=== PATIENT | male | born 1965 | race Hispanic/Latino ===

== ENCOUNTER → 2019-05-14 | Outpatient (CLI) | payer OTHER ==
[~2019-05-14] MED LIST: OMEP40CA13 PO
[2019-05-14 09:24] LABS: BASOPHILS % (AUTO) 0.7 % (0.0-5.0); EOSINOPHILS % (AUTO) 3.1 % (0.0-8.0); HEMATOCRIT 48.8 % (42-54); LYMPHOCYTES % (AUTO) 30.9 % (21.0-51.0); MEAN CORPUSCULAR HGB CONC 33.5 g/dL (32.0-36.0); MEAN CORPUSCULAR VOLUME 92.5 fL (79-99); NEUTROPHILS % (AUTO) 55.3 % (40.0-77.0); NUCLEATED RED BLOOD CELLS 0.1 % (0.0-0.19); PLATELET COUNT (AUTO) 215 K/uL (130-400); RED BLOOD CELL COUNT(AUTO) 5.28 MIL/uL (4.50-6.20); RED CELL DISTRIBUTION WIDTH 14.1 % (11.0-15.5); WHITE BLOOD COUNT (AUTO) 5.2 K/uL (4.8-10.8)
[2019-05-14 09:40] LABS: ALBUMIN 3.9 g/dL (3.5-5.0); CREATININE 0.9 mg/dL (0.5-1.5); POTASSIUM 3.8 mmol/L (3.5-5.1); TOTAL PROTEIN, SERUM 7.6 g/dL (6.0-8.3)
== END | disposition home or self-care (01) ==
LOC: LAB 08:39
PROVIDERS: ATTEND Nurse Practitioner Family
DX: M13.0 Polyarthritis, unspecified (principal); M25.50 Pain in unspecified joint
CPT/HCPCS: 36415; 73130; 73562; 80053; 83520; 85025; 86038; 86215; 86235; 86431

== ENCOUNTER → 2019-06-07 | Outpatient (CLI) | payer OTHER ==
[2019-06-07 10:40] LABS: BASOPHILS % (AUTO) 0.6 % (0.0-5.0); EOSINOPHILS % (AUTO) 2.4 % (0.0-8.0); HEMATOCRIT 48.8 % (42-54); MEAN CORPUSCULAR HEMOGLOBIN 29.3 pg (27.0-33.0); MEAN CORPUSCULAR HGB CONC 31.4 g/dL (32.0-36.0); MEAN CORPUSCULAR VOLUME 93.5 fL (79-99); MONOCYTES % (AUTO) 6.6 % (3.0-13.0); NEUTROPHILS % (AUTO) 62.2 % (40.0-77.0); PLATELET COUNT (AUTO) 247 K/uL (130-400); RED BLOOD CELL COUNT(AUTO) 5.22 MIL/uL (4.50-6.20); RED CELL DISTRIBUTION WIDTH 13.7 % (11.0-15.5); WHITE BLOOD COUNT (AUTO) 5.3 K/uL (4.8-10.8)
[2019-06-07 10:43] LABS: APPEARANCE,URINE Clear (CLEAR); BILIRUBIN,URINE Negative (NEGATIVE); COLOR,URINE Yellow (YELLOW); GLUCOSE, URINE (UA) TRACE mg/dL (NEGATIVE); KETONES,URINE Negative (NEGATIVE); LEUKOCYTE ESTERASE ,URINE Negative (NEGATIVE); NITRATE,URINE Negative (NEGATIVE); OCCULT BLOOD,URINE Small (NEGATIVE); PROTEIN,URINE Negative (NEGATIVE); UROBILINOGEN,URINE 0.2 mg/dL (0.2-1.0)
[2019-06-07 10:55] LABS: BACTERIA,URINE Rare /HPF (None Seen); RBC,URINE 0-1 /HPF (0-1); SQUAMOUS EPITHELIAL CELL,UR Rare /HPF (0-2); WBC,URINE 0-1 /HPF (0-1)
[2019-06-07 11:08] LABS: BILIRUBIN,TOTAL 1.1 mg/dL (0.2-1.0)
[2019-06-07 11:09] LABS: CREATININE 1.2 mg/dL (0.5-1.5); POTASSIUM 3.9 mmol/L (3.5-5.1); THYROID STIMULATING HORMONE 1.4 uIU/mL (0.36-3.74); TOTAL PROTEIN, SERUM 7.7 g/dL (6.0-8.3)
[2019-06-07 11:38] LABS: ERYTHROCYTE SEDIMENTATION RATE 2 MM/HR (0-20)
== END | disposition home or self-care (01) ==
LOC: LAB 09:48
PROVIDERS: ATTEND Nurse Practitioner Family
DX: Z00.01 Encounter for general adult medical examination with abnormal findings (principal)
CPT/HCPCS: 36415; 80053; 80061; 81001; 82306; 84153; 84154; 84439; 84443; 85025; 85651

== ENCOUNTER → 2022-02-26 | Outpatient (CLI) | payer OTHER ==
[~2022-02-26] MED LIST changes: -OMEP40CA13 PO; +OMEP40CA21 PO
[2022-02-26 08:42] LABS: BASOPHILS % (AUTO) 0.7 % (0.0-5.0); EOSINOPHILS % (AUTO) 1.6 % (0.0-8.0); LYMPHOCYTES % (AUTO) 27.3 % (21.0-51.0); MEAN CORPUSCULAR HEMOGLOBIN 29.5 pg (27.0-33.0); MEAN CORPUSCULAR HGB CONC 32.6 g/dL (32.0-36.0); MEAN CORPUSCULAR VOLUME 90.6 fL (79-99); MONOCYTES % (AUTO) 6.8 % (3.0-13.0); NEUTROPHILS % (AUTO) 63.3 % (40.0-77.0); PLATELET COUNT (AUTO) 263 K/uL (130-400); RED BLOOD CELL COUNT(AUTO) 5.19 MIL/uL (4.50-6.20); RED CELL DISTRIBUTION WIDTH 13.4 % (11.0-15.5); WHITE BLOOD COUNT (AUTO) 7.4 K/uL (4.8-10.8)
[2022-02-26 08:46] LABS: APPEARANCE,URINE CLEAR (CLEAR); BILIRUBIN,URINE NEGATIVE (NEGATIVE); COLOR,URINE YELLOW (YELLOW); GLUCOSE, URINE (UA) NEGATIVE (NEGATIVE); KETONES,URINE NEGATIVE (NEGATIVE); LEUKOCYTE ESTERASE ,URINE NEGATIVE Leu/uL (NEGATIVE); NITRATE,URINE NEGATIVE (NEGATIVE); PH,URINE 6.5 (5.0-8.0); PROTEIN,URINE NEGATIVE (NEGATIVE); UROBILINOGEN,URINE 0.2 mg/dL (0.2-1.0)
[2022-02-26 09:09] LABS: MUCUS,URINE RARE LPF (None Seen); WBC,URINE 0-1 /HPF (0-1)
[2022-02-26 09:14] LABS: ALBUMIN 3.8 g/dL (3.5-5.0); POTASSIUM 4.3 mmol/L (3.5-5.1); THYROID STIMULATING HORMONE 1.16 uIU/mL (0.36-3.74); TOTAL PROTEIN, SERUM 7.6 g/dL (6.0-8.3)
[2022-02-26 10:37] LABS: ERYTHROCYTE SEDIMENTATION RATE 10 MM/HR (0-20)
== END | disposition home or self-care (01) ==
LOC: LAB 07:55
PROVIDERS: ATTEND Nurse Practitioner Family
DX: R53.82 Chronic fatigue, unspecified (principal); E29.1 Testicular hypofunction; N52.9 Male erectile dysfunction, unspecified; R10.9 Unspecified abdominal pain; E78.5 Hyperlipidemia, unspecified; K21.9 Gastro-esophageal reflux disease without esophagitis; Z13.220 Encounter for screening for lipoid disorders; Z13.21 Encounter for screening for nutritional disorder; Z13.29 Encounter for screening for other suspected endocrine disorder
CPT/HCPCS: 36415; 80053; 80061; 81001; 82150; 82306; 83013; 83690; 84439; 84443; 84479; 84481; 85025; 85651

== ENCOUNTER → 2022-09-25 | Outpatient (CLI) | payer OTHER ==
[2022-09-25 09:20] LABS: EOSINOPHILS % (AUTO) 2.5 % (0.0-8.0); HEMATOCRIT 49.5 % (42-54); LYMPHOCYTES % (AUTO) 34.7 % (21.0-51.0); MEAN CORPUSCULAR HEMOGLOBIN 29.7 pg (27.0-33.0); MEAN CORPUSCULAR HGB CONC 32.3 g/dL (32.0-36.0); MONOCYTES % (AUTO) 8.1 % (3.0-13.0); NEUTROPHILS % (AUTO) 53.5 % (40.0-77.0); PLATELET COUNT (AUTO) 232 K/uL (130-400); RED BLOOD CELL COUNT(AUTO) 5.38 MIL/uL (4.50-6.20); RED CELL DISTRIBUTION WIDTH 13.3 % (11.0-15.5)
[2022-09-25 09:38] LABS: APPEARANCE,URINE CLEAR (CLEAR); BILIRUBIN,URINE NEGATIVE (NEGATIVE); COLOR,URINE LIGHT-YELLOW (YELLOW); GLUCOSE, URINE (UA) NEGATIVE (NEGATIVE); KETONES,URINE NEGATIVE (NEGATIVE); LEUKOCYTE ESTERASE ,URINE NEGATIVE Leu/uL (NEGATIVE); NITRATE,URINE NEGATIVE (NEGATIVE); OCCULT BLOOD,URINE SMALL (NEGATIVE); PROTEIN,URINE NEGATIVE (NEGATIVE); UROBILINOGEN,URINE 0.2 mg/dL (0.2-1.0)
[2022-09-25 09:44] LABS: MUCUS,URINE RARE LPF (None Seen); WBC,URINE 0-1 /HPF (0-1)
[2022-09-25 09:45] LABS: ALBUMIN 4.2 g/dL (3.5-5.0); THYROID STIMULATING HORMONE 2.75 uIU/mL (0.36-3.74)
[2022-09-25 10:41] LABS: ERYTHROCYTE SEDIMENTATION RATE 5 MM/HR (0-20)
== END | disposition home or self-care (01) ==
LOC: RAH 08:05
PROVIDERS: ATTEND Nurse Practitioner Family
DX: K21.9 Gastro-esophageal reflux disease without esophagitis (principal); N52.9 Male erectile dysfunction, unspecified; M54.50 Low back pain, unspecified; E78.5 Hyperlipidemia, unspecified; E78.00 Pure hypercholesterolemia, unspecified; E55.9 Vitamin D deficiency, unspecified; Z13.29 Encounter for screening for other suspected endocrine disorder; R53.82 Chronic fatigue, unspecified
CPT/HCPCS: 36415; 72100; 80053; 80061; 81001; 82306; 84439; 84443; 84481; 85025; 85651

== ENCOUNTER 2024-05-26 02:54 | Emergency (ER) | payer OTHER ==
[~2024-05-26] VITALS: Ht 175.3 cm; Wt 74.8 kg
[2024-05-26] MEDS: hydroMORPHone 1 MG INJ IVP ONE (03:58)
[2024-05-26] MEDS: Solu-medROL 125MG VIAL IVP ONE (03:59)
[2024-05-26] MEDS: CYCLOBENZAPRINE HCL 10 MG TABLET PO ONE (03:59)
[2024-05-26] MEDS: ketOROlac 30MG VIAL (30MG/ML) IVP ONE (03:59)
--- NOTE | 2024-05-26 04:00 | ERN ---
ED Note History of Present Illness Stated Complaint: LOWER BACK PAIN RADIATING DOWN LEFT LEG Chief Complaint: Lower Extremity Pain/Injury Time Seen by MD: 03:04 Dictation: This is a 58-year-old male who presented to the emergency room with complaints of severe lower back pain in the lumbar area with radiation to the gluteal and right lower leg. He stated that the pain is so intense that he could not sleep and came into the ED for further evaluation has a history of chronic lower back pain and saw his primary care physician and received shots in the gluteal area and was sent home on Lyrica and prednisone. He was unable to even roll to the side due to excruciating pain. No bladder or bowel incontinence no weakness of the leg. Temperature 98.1 pulse 89 respirations 19 blood pressure 146/65 with a pulse oximetry of 99% on room air Allergies: Coded Allergies: No Known Drug Allergies (Unverified Allergy, Unknown, 06/21/16) Home Meds Reported Medications Omeprazole (Omeprazole) 40 Mg Capsule.dr, 40 MG PO AM, CAP 06/21/16 Past Medical History Past Medical History: GERD, Other Additional Past Medical Hx: BACK PAIN Surgical History: None Family History: Negative Social History: Negative RN Note Reviewed/Agreed w/PFSH: Yes Review of System Dictation Constitutional: Negative for fever,chills, and weight loss Eyes: Negative for injury, pain,redness, and discharge ENT: Negative for injury,pain or swelling Cardiovascular: Negative for chest pain, palpitations, and edema Respiratory: Negative for shortness of breath, cough, and wheezing, Abdomen/GI: Negative for abdominal pain, nausea, vomiting, diarrhea, and constipation Back: Negative for injury and pain : Negative for injury, bleeding and discharge MS/Extremity: Negative for injury and deformity. As described in the history of present illness Skin: Negative for rash, and discoloration Neuro: Negative for headache, weakness, numbness, tingling, and seizure Psych: Negative for suicide ideation, homicidal ideation, and hallucinations Initial Vital Sign VS Vital Signs Date Time Temp Pulse Resp B/P (MAP) Pulse Ox O2 Delivery O2 Flow Rate FiO2 05/26/24 02:58 98.1 84 16 148/89 99 Room Air 05/26/24 03:50 0 21 Physical Exam Dictation General: awake, alert, NAD Head/Face: Normocephalic, atraumatic Eyes: PERRL, EOMI, vision at baseline ENT: oral cavity clear, TMs clear, no signs of infection Neck: Trachea midline, supple, no nuchal rigidity Cardiovascular: RRR, normal S1/S2, No MRGs, no JVD Respiratory: CTAB, no respiratory distress, No rales or wheezes Abdomen: Soft, non-tender, non-distended, normal bowel sounds, no guarding or rebound. Skin: Warm, dry, normal turgor, no rash MS/Extremity: Pulses equal, no cyanosis, neurovascular intact, FROM Neuro: COAx4, GCS 15, strength 5/5, CN 2-12 intact, normal cerebellar exam, normal gait, Psych: Normal behavior, mood, and affect normal Extremities-trace edema without any palpable cords, Homans sign is negative Results (Laboratory/Radiology) Labs Reviewed?: Yes ED Course ED Course Orders Procedure Category Date Status Time Methylprednisolone PHA 05/26/24 Complete Succ 125mg (Solu-Medr 03:30 Cyclobenzaprine Hcl PHA 05/26/24 Complete (Cyclobenzaprine Hcl 03:30 Ketorolac PHA 05/26/24 Complete Tromethamine 30mg/Ml 03:30 Hydromorphone 1 Mg PHA 05/26/24 Complete Inj (Dilaudid 1mg Inj 03:30 Current Medications Medications (Trade) Dose Ordered Sig/Elidia Route PRN Reason Start Time Stop Time Status Last Admin Dose Admin Cyclobenzaprine HCl (Cyclobenzaprine HCl) 10 mg ONCE ONCE PO 05/26/24 03:30 05/26/24 03:31 DC Hydromorphone HCl (DiLAUDid 1MG INJ) 1 mg ONCE ONCE IVP 05/26/24 03:30 05/26/24 03:31 DC Ketorolac Tromethamine (toRADol) 30 mg ONCE ONCE IVP 05/26/24 03:30 05/26/24 03:31 DC Methylprednisolone Sodium Succinate (Solu-medROL 125MG) 80 mg ONCE ONCE IVP 05/26/24 03:30 05/26/24 03:31 DC Vital Signs Date Time Temp Pulse Resp B/P (MAP) Pulse Ox O2 Delivery O2 Flow Rate FiO2 05/26/24 03:50 98.1 89 19 146/65 99 Room Air* 0 21 05/26/24 02:58 98.1 84 16 148/89 99 Room Air We will administer medications according to the patient's complaint. Once the results are available, will review and personally interpreted the labs to rule out any acute life-threatening emergency the trach require immediate intervention and treatment. I will then re-evaluate the patient after treatment and diagnostic exams have return to determine whether the patient requires any further testing, can safely be discharged home or need further [facility] for additional treatment and evaluation. Medical Decision Making MDM MDM: Differential diagnosis: Degenerative disc disease, lumbar radiculopathy, right- sided sciatica, compression fracture Rationale: Tests considered and ordered secondary to shared decision making include: Previous outside records reviewed: Old ER visits. Risk of complication and/or morbidity or mortality of patient management: None Medications-Per medication reconciliation Need for hospitalization: Patient does not meet criteria for hospitalization. Need for emergency major/minor surgery: No There are no social concerns with this patient. Prescription drug management Prescriptions will include symptomatic care Patient's prior external medical records from other ER visits were reviewed by me as indicated. Prior testing and results from previous visits were reviewed. Prior tests were taken into account with medical decision making and resource utilization, independent historian/historians were used to obtain complete medical history. I independently interpreted the test that were performed, results were reviewed by me and considered findings on radiology if ordered. Medical management and examination interpretation discussions were had by me wit h other qualified healthcare professionals as indicated for the patient's care. Problem List Problem List: (1) Lumbar radiculopathy, right (2) Right-sided low back pain with sciatica DX & DISP Disposition: Discharge Departure Impression: Primary Impression: Lumbar radiculopathy, right Additional Impression: Right-sided low back pain with sciatica Condition: Stable Scripts Prednisone (Prednisone) 20 Mg Tablet 1 TAB PO AD for 6 Days, #14 TAB 0 Refills TAKE 1 TAB BY MOUTH THREE TIMES PER DAY X3 DAYS, THEN TAKE 1 TAB BY MOUTH TWICE A DAY X2 DAYS, THEN TAKE 1 TAB BY MOUTH ONCE A DAY X1 DAY. Prov: ELANA PATTERSON MD 05/26/24 Hydrocodone/Acetaminophen (Hydrocodon-Acetaminophen 5-325) 5 Mg-325 Mg Tablet 1 EACH PO Q6H for pain, #16 TAB 0 Refills Prov: ELANA PATTERSON MD 05/26/24 Cyclobenzaprine HCl (Cyclobenzaprine HCl) 10 Mg Tablet 1 TAB PO TID for muscle spasms for 10 Days, #30 TAB 0 Refills Prov: ELANA PATTERSON MD 05/26/24 Meloxicam (Meloxicam) 7.5 Mg Tablet 1 TAB PO BID for 30 Days, #60 TAB 0 Refills Prov: ELANA PATTERSON MD 05/26/24 Additional Instructions: Patient and the caregiver have been informed of all the diagnostic tests and the imaging conducted during the today's visit to the emergency room and has verbalized understanding of the results I have personally reviewed and interpreted all diagnostic exams performed here in the ER today as well as the vital signs documented by the nursing staff. The patient is now being discharged to home and should follow up with the primary care physician or the specialist as directed by the ER staff. Follow-up with primary care provider in 1 to 2 days. Take medications as directed here in the emergency room. Okay to continue home medications unless otherwise discussed during your visit in the emergency room today. Return to your nearest emergency room if symptoms worsen or if there is no improvement. Call 911 if you need immediate assistance. Increase oral hydration. A wound culture or urine culture was ordered here in the emergency room department please follow-up with primary care provider and advise them to get repeat ports from our facility. If you had any Freddie wrap/splints that were applied here, please do not remove them until you see your primary care or specialty. Back pain precautions discussed-avoid weight-bearing, since I already gave him the nonsteroidals, he should avoid taking [id number] medications and duplicate the same. I also prepared instructions on a sheet for better understanding. Referrals: ELLI MCCLELLAN (PCP) ELANA PATTERSON MD May 26, 2024 04:00
[2024-05-26] MEDS ORDERED: MELO-106 PO (04:12)
[2024-05-26] MEDS ORDERED: HYDR-4060 PO (04:12)
[2024-05-26] MEDS ORDERED: CYCL-309 PO (04:12)
[2024-05-26] MEDS ORDERED: PRED20TA3 PO (04:22)
[2024-05-26 04:46] VITALS: BP 132/56; PULSE 82; RESP 18; TEMP 98.2; O2SAT 98
== END 2024-05-26 04:48 | disposition home or self-care (01) ==
LOC: EDH 02:54
DX: M54.16 Radiculopathy, lumbar region (principal); K21.9 Gastro-esophageal reflux disease without esophagitis
CPT/HCPCS: 99284; 96374; 96375; J1171; J2919; J1885

== ENCOUNTER 2024-06-12 08:49 | Emergency (ER) | payer OTHER ==
[~2024-06-12] VITALS: Ht 175.3 cm; Wt 77.1 kg
[~2024-06-12 08:49] MED LIST changes: +CYCL-309 PO; +HYDR-4060 PO; +MELO-106 PO; +PRED20TA3 PO
[2024-06-12] MEDS: HYDROcodone/APAP 5/325 1 TAB TABLET PO ONE (09:34)
[2024-06-12] MEDS: ketOROlac 15MG/ML VIAL (15MG/ML) IM ONE (09:34)
[2024-06-12] MEDS ORDERED: MELO-108 PO (09:52)
[2024-06-12] MEDS ORDERED: ORPH100T4 PO (09:52)
[2024-06-12] MEDS ORDERED: PRED20TA3 PO (09:52)
[2024-06-12] MEDS ORDERED: HYDR-4060 PO (09:52)
--- NOTE | 2024-06-12 09:56 | ERN ---
General Chief Complaint: Lower Extremity Pain/Injury Stated Complaint: LEFT SCIATICA PAIN Time Seen by MD: 08:52 History of Present Illness Initial Comments 58-year-old male who presents for left-sided sciatic nerve pain. Has been present for about three weeks. No motor dysfunction, paresthesias, incontinence, midline spine Pain, or other red flags. Patient was taking meloxicam, cyclobenzaprine, Clifton, and prednisone with relief, but recently ran out of medications. Allergies: Coded Allergies: No Known Drug Allergies (Unverified Allergy, Unknown, 06/21/16) Home Meds Active Scripts Prednisone (Prednisone) 20 Mg Tablet, 1 TAB PO AD for 6 Days, #14 TAB 0 Refills TAKE 1 TAB BY MOUTH THREE TIMES PER DAY X3 DAYS, THEN TAKE 1 TAB BY MOUTH TWICE A DAY X2 DAYS, THEN TAKE 1 TAB BY MOUTH ONCE A DAY X1 DAY. Prov:ELANA PATTERSON MD 05/26/24 Hydrocodone/Acetaminophen (Hydrocodon-Acetaminophen 5-325) 5 Mg-325 Mg Tablet, 1 EACH PO Q6H for pain, #16 TAB 0 Refills Prov:ELANA PATTERSON MD 05/26/24 Cyclobenzaprine HCl (Cyclobenzaprine HCl) 10 Mg Tablet, 1 TAB PO TID for muscle spasms for 10 Days, #30 TAB 0 Refills Prov:ELANA PATTERSON MD 05/26/24 Meloxicam (Meloxicam) 7.5 Mg Tablet, 1 TAB PO BID for 30 Days, #60 TAB 0 Refills Prov:ELANA PATTERSON MD 05/26/24 Reported Medications Omeprazole (Omeprazole) 40 Mg Capsule., 40 MG PO AM, CAP 06/21/16 Past Medical History Past Medical History: GERD, Other Medical History Other: BACK PAIN Past Surgical History: None Surgical History Other: HIATAL HERNIA Family History Family History: Negative Social History Social History: Negative ROS Dictation CONSTITUTIONAL: No chills, no fever, no weakness, no diaphoresis, no malaise. HEAD/FACE: No signs of trauma. EENT: No eye pain, no blurred vision, no tearing, no double vision, no ear pain, no ear discharge, no nose pain, no nasal congestion, no throat pain, no throat swelling, no mouth pain. RESPIRATORY: No cough, no orthopnea, no SOB, no stridor, no wheezing. CARDIOVASCULAR: No chest pain, no edema, no palpitations, no syncope. GASTROINTESTINAL/ABDOMINAL: No abdominal pain, no constipation, no diarrhea, no nausea, no vomiting. GENITOURINARY: No abnormal discharge, no dysuria, no frequent urination, no hematuria. No complaints of pain in the genitals. MUSCULOSKELETAL: Lower back pain INTEGUMENTARY: No change in color, no change in hair/nails, no dryness, no lesion, no lumps, no rash. NEUROLOGICAL/PSYCH: No anxiety, not depressed, no emotional problem, no heada timothy, no numbness, no pre-existing deficit, no history of seizures, no tremors, no weakness. HEMATOLOGIC/LYMPHATIC: Not anemic, no history of blood clots, no apparent bleeding, no bruising, glands not swollen. All Systems Negative, Except as Noted. Physical Exam Physical Exam Dictation VITAL SIGNS: Reviewed. GENERAL APPEARANCE: Alert, oriented x3, no acute distress. HEAD AND FACE: Non-traumatic. EYES: PERRL, pink conjunctivas, eyelid no trauma, anterior chamber clear. EARS: Pinnas intact and no signs of trauma or erythema. Ear canals clear and no discharge. TMs no erythema. NOSE: No discharge, no bleeding. OROPHARYNX: Mouth normal, teeth no caries, tongue pink. Pharynx clear, no erythema. Tonsils no exudates, no abscesses noted. Mucous membrane moist. NECK: Supple, non-tender, no thyromegaly, no masses, no JVD, no bruits. BREAST: Deferred. CHEST: No tenderness, no crepitus, no paradoxical movement, no retractions. LUNGS: Clear, well-ventilated, symmetric, no rales, no wheezing, no rhonchi, no stridor, good breath sounds bilaterally. HEART: Regular rate, regular rhythm, no murmur, no gallops. VASCULAR: No peripheral edema. ABDOMEN: Soft, positive bowel sounds, nondistended, no guarding, nontender, no rebound, no masses no hepatomegaly, no splenomegaly, no Kaminski's sign, no hernias. RECTAL: Deferred. GENITAL: Deferred. NEUROLOGICAL: Normal speech, gross motor function intact, gross sensory function intact. MUSCULOSKELETAL: Neck nontender, full range of motion, back nontender, full range of motion. EXTREMITIES: Nontender, full range of motion. SKIN: Color pink, dry, no turgor, no rash, no lacerations, no abrasions, no contusions. LYMPHATICS: Deferred. MDM CC: Lower back pain with sciatica on the left side Historian: Patient Comorbidities: None Limitations by social determinants of health: None Differential diagnosis includes lumbago, musculoskeletal spasm, sciatica. There is no red flags in the history of physical. No signs of malignancy, no signs of fracture, no signs of cauda equina, no bowel or urinary incontinence, no saddle anesthesia, no distal weakness. No signs of AAA, perforation, renal colic pyelonephritis. Given the clinical picture is no indication for imaging at this time. Patient received Clifton and IM Toradol here in the ER. We will DC with pain control, muscle relaxant, steroids, and recommend PCP follow up. Family agrees with the plan. ED Course Orders Procedure Category Date Status Time Ketorolac PHA 06/12/24 Complete Tromethamine 15mg/Ml 09:30 Hydrocodone/Apap PHA 06/12/24 Complete 5/325 (Clifton 5/325mg) 09:30 Current Medications Medications (Trade) Dose Ordered Sig/Elidia Route PRN Reason Start Time Stop Time Status Last Admin Dose Admin Acetaminophen/ Hydrocodone Bitart (NORco 5/325MG) 2 tab ONCE ONCE PO 06/12/24 09:30 06/12/24 09:31 DC 06/12/24 09:34 Ketorolac Tromethamine (toRADol) 15 mg ONCE ONCE IM 06/12/24 09:30 06/12/24 09:31 DC 06/12/24 09:34 Vital Signs Date Time Temp Pulse Resp B/P (MAP) Pulse Ox O2 Delivery O2 Flow Rate FiO2 06/12/24 08:56 97.7 98 16 131/100 96 Room Air* 0 21 06/12/24 08:50 97.7 98 16 131/100 96 Room Air 0 DX & DISP Disposition: Discharge Departure Impression: Primary Impression: Low back pain with sciatica Condition: Stable Scripts Prednisone (Prednisone) 20 Mg Tablet 1 TAB PO BID for 5 Days, #10 TAB 0 Refills Prov: DOMINGA VANESSA DO 06/12/24 Orphenadrine Citrate (Orphenadrine Citrate) 100 Mg Tablet.er 1 TAB PO [id number] PRN for pain for 10 Days, #20 TAB 0 Refills Prov: DOMINGA VANESSA DO 06/12/24 Meloxicam (Meloxicam) 15 Mg Tablet 15 MG PO DAILY PRN for PAIN for 10 Days, #10 TAB Prov: DOMINGA VANESSA DO 06/12/24 Hydrocodone/Acetaminophen (Hydrocodon-Acetaminophen 5-325) 5 Mg-325 Mg Tablet 1 TAB PO TIDP PRN for pain for 10 Days, #20 TAB 0 Refills Prov: DOMINGA VANESSA DO 06/12/24 Additional Instructions: Your symptoms are consistent with a lower back pain with sciatica. There is no indication for imaging at this time. I have prescribed another course of steroids (prednisone). Take as prescribed. I have increased her dose of meloxicam, which is an anti-inflammatory steroid. You can take this daily as needed. I have changed the muscle relaxant from cyclobenzaprine to orphenadrine. You can take this twice per day as needed. I have prescribed Clifton tabs (hydrocodone/acetaminophen) that you can take up to 3 times a day for significant pain. As we discussed, alternate between periods of rest and gentle activity. Prolonged sitting or standing can worsen sciatica. Gradually resume normal activities as tolerated. Avoid heavy lifting, twisting or activities that would strain your back. You can apply heat or ice packs to the affected area every 15-20 minutes every two or 3 hours for pain relief. Ice is good for acute pain, while heat can help relax tight muscles. You likely need physical therapy. Please contact your primary doctor for a referral. You can perform gentle stretches or exercises to relieve pressure on the sciatic nerve. Maintain good posture while sitting and standing to reduce pressure on the sciatic nerve. Use a chair with the proper lumbar support and avoid crossing your legs while sitting. Consider using a pillow under your knees would like down to alleviate pressure on your lower back. Please return to the emergency department for any warning signs including motor dysfunction, loss of bladder or bowel control, or any other concerning symptoms. Please follow up with your primary doctor. You may need further studies or treatment. Referrals: ELLI MCCLELLAN (PCP) DOMINGA VANESSA DO Jun 12, 2024 09:56
[2024-06-12 11:06] VITALS: BP 129/89; PULSE 86; RESP 16; TEMP 98.2; O2SAT 97
== END 2024-06-12 11:07 | disposition home or self-care (01) ==
LOC: EDH 08:49
DX: M54.42 Lumbago with sciatica, left side (principal); K21.9 Gastro-esophageal reflux disease without esophagitis; Z79.899 Other long term (current) drug therapy
CPT/HCPCS: 99283; 96372; J1885

== ENCOUNTER → 2024-06-17 | Outpatient (CLI) | payer OTHER ==
[~2024-06-17] MED LIST changes: +MELO-108 PO; +ORPH100T4 PO
[2024-06-17 08:54] LABS: APPEARANCE,URINE CLEAR (CLEAR); BILIRUBIN,URINE NEGATIVE (NEGATIVE); COLOR,URINE YELLOW (YELLOW); GLUCOSE, URINE (UA) 200 mg/dL (NEGATIVE); KETONES,URINE NEGATIVE (NEGATIVE); LEUKOCYTE ESTERASE ,URINE NEGATIVE Leu/uL (NEGATIVE); NITRATE,URINE NEGATIVE (NEGATIVE); PROTEIN,URINE 10 mg/dL (NEGATIVE); UROBILINOGEN,URINE 0.2 mg/dL (0.2-1.0)
[2024-06-17 08:54] LABS: BASOPHILS # (AUTO) 0.03 K/uL (0.00-0.20); BASOPHILS % (AUTO) 0.3 % (0.0-5.0); EOSINOPHILS # (AUTO) 0.05 K/uL (0.00-0.70); EOSINOPHILS % (AUTO) 0.4 % (0.0-8.0); HEMATOCRIT 50.6 % (42-54); IMMATURE GRANULOCYTE ABSOLUTE 0.07 K/uL (0-1); LYMPHOCYTES % (AUTO) 25.9 % (21.0-51.0); MEAN CORPUSCULAR VOLUME 90.8 fL (79-99); MONOCYTES # (AUTO) 0.9 K/uL (0.1-1.0); MONOCYTES % (AUTO) 7.8 % (3.0-13.0); NEUTROPHILS # (AUTO) 7.6 K/uL (1.8-7.7); PLATELET COUNT (AUTO) 233 K/uL (130-400); RED BLOOD CELL COUNT(AUTO) 5.57 MIL/uL (4.50-6.20); RED CELL DISTRIBUTION WIDTH 13.3 % (11.0-15.5); WHITE BLOOD COUNT (AUTO) 11.7 K/uL (4.8-10.8)
[2024-06-17 09:00] LABS: ADD UA MICROSCOPIC YES
[2024-06-17 09:03] LABS: MUCUS,URINE FEW LPF (None Seen); WBC,URINE 0-1 /HPF (0-1)
[2024-06-17 09:18] LABS: ALBUMIN 3.7 g/dL (3.5-5.0); BILIRUBIN,TOTAL 0.9 mg/dL (0.2-1.0); CREATININE 1.1 mg/dL (0.5-1.3); POTASSIUM 3.3 mmol/L (3.5-5.1); THYROID STIMULATING HORMONE 2.53 uIU/mL (0.36-3.74); TOTAL PROTEIN, SERUM 7.7 g/dL (6.0-8.3)
[2024-06-17 09:58] LABS: ERYTHROCYTE SEDIMENTATION RATE 5 MM/HR (0-20)
== END | disposition home or self-care (01) ==
LOC: LAB 08:07
PROVIDERS: ATTEND Nurse Practitioner Family
DX: Z13.29 Encounter for screening for other suspected endocrine disorder (principal); R53.82 Chronic fatigue, unspecified; E55.9 Vitamin D deficiency, unspecified; E78.00 Pure hypercholesterolemia, unspecified; K21.9 Gastro-esophageal reflux disease without esophagitis
CPT/HCPCS: 36415; 80053; 80061; 81001; 82306; 84439; 84443; 84481; 85025; 85651

== ENCOUNTER → 2024-06-18 | Outpatient (CLI) | payer OTHER ==
--- NOTE | 2024-06-18 09:00 | HMCIMG ---
MR SPINAL CANAL, LUMBAR WO CON HISTORY: Left-sided sciatica COMPARISON: None TECHNIQUE: MRI of the lumbar spine was performed utilizing multiple pulse sequences in axial , coronal and sagittal plane. Patient was not given contrast through intravenous route. FINDINGS: No abnormal signal intensity is seen of the visualized bony structure. No loss of vertebral height is seen. There is straightening of normal lumbar curvature which may be related to muscle spasm or positioning. Degenerative disc signals are present at all lumbar spine levels. Visualized distal conus is unremarkable. At the L1-L2 level, there is left lateral disc herniation/extrusion causing anterior thecal sac compression without associated neural foraminal stenosis. The thecal sac measures approximately 7 mm in its anterior posterior dimension. At the L4-5 level, there is spondylotic disc with annular disc bulge and bilateral ligamentum flavum hypertrophy causing anterior thecal sac compression with bilateral lateral recess stenosis and bilateral neural foraminal stenosis. The thecal sac measures approximately 6.8 mm in its anterior posterior dimension. At the L5-S1 level, there is spondylotic disc with lateral disc herniation/extrusion annular disc bulge and bilateral ligamentum flavum hypertrophy causing anterior thecal sac compression with bilateral lateral recess stenosis and bilateral neural foraminal stenosis. There may be left nerve root encroachment. The thecal sac measures approximately 6.8 mm in its anterior posterior dimension. IMPRESSION: 1. DJD with lumbar spine spondylosis as described above. There is left lateral disc herniation/extrusion at L5-S1 level causing left neural root encroachment. There is also left lateral disc herniation/extrusion at L1-2 level.
== END | disposition home or self-care (01) ==
LOC: RAH 07:49
PROVIDERS: ATTEND Nurse Practitioner Family
DX: M47.817 Spondylosis without myelopathy or radiculopathy, lumbosacral region (principal); M51.27 Other intervertebral disc displacement, lumbosacral region; M48.07 Spinal stenosis, lumbosacral region; M54.32 Sciatica, left side
CPT/HCPCS: 72148

== ENCOUNTER 2024-06-26 00:10 | Emergency (ER) | payer OTHER ==
[~2024-06-26] VITALS: Ht 172.7 cm; Wt 76.2 kg
[2024-06-26 00:11] VITALS: TEMP 98.7
--- NOTE | 2024-06-26 00:36 | ERN ---
ED Note History of Present Illness Stated Complaint: LEFT LEG PAIN Chief Complaint: Lower Extremity Pain/Injury Time Seen by : 00:26 Dictation: This is a 58-year-old male who presented to the emergency room with complaints of severe lower back pain in the lumbar area with radiation to the gluteal and right lower leg. He stated that the pain is so intense that he could not sleep and came into the ED for further evaluation has a history of chronic lower back pain. He was unable to even roll to the side due to excruciating pain. He has been seen in the emergency room for the same problems since May at least 4 times. He stated that the meloxicam and cyclobenzaprine combination along with Laona for PRN severe pain worked very well and his was able to ambulate without problems. He stated that he saw his primary care physician who did not want to refill any medications but asked him to see a surgeon for further evaluation. He stated that he ran out of pain medications on the 23 of June (meds given in the ED on 06/12/2024 visit for 10 days) No bladder or bowel incontinence no weakness of the leg. Temperature 98.7 pulse 111 respirations 20 blood pressure 118/97 with a pulse oximetry of 98%. Allergies: Coded Allergies: No Known Drug Allergies (Unverified Allergy, Unknown, 06/21/16) Home Meds Active Scripts Prednisone (Prednisone) 20 Mg Tablet, 1 TAB PO AD for 6 Days, #14 TAB 0 Refills TAKE 1 TAB BY MOUTH THREE TIMES PER DAY X3 DAYS, THEN TAKE 1 TAB BY MOUTH TWICE A DAY X2 DAYS, THEN TAKE 1 TAB BY MOUTH ONCE A DAY X1 DAY. Prov:ELANA PATTERSON MD 06/26/24 Oxycodone HCl/Acetaminophen (Percocet 5-325 mg Tablet) 5 Mg-325 Mg Tablet, 1 TAB PO QIDP PRN for severe back pain for 5 Days, #20 TAB 0 Refills Prov:ELANA PATTERSON MD 06/26/24 Cyclobenzaprine HCl (Cyclobenzaprine HCl) 5 Mg Tablet, 1 TAB PO TIDP PRN for muscle spasms for 10 Days, #30 TAB 0 Refills Prov:ELANA PATTERSON MD 06/26/24 Meloxicam (Meloxicam) 7.5 Mg Tablet, 1 TAB PO DAILY for 30 Days, #30 TAB 0 Refills Prov:ELANA PATTERSON MD 06/26/24 Prednisone (Prednisone) 20 Mg Tablet, 1 TAB PO BID for 5 Days, #10 TAB 0 Refills Prov:DOMINGA VANESSA DO 06/12/24 Orphenadrine Citrate (Orphenadrine Citrate) 100 Mg Tablet.er, 1 TAB PO [id number] PRN for pain for 10 Days, #20 TAB 0 Refills Prov:DOMINGA VANESSA DO 06/12/24 Meloxicam (Meloxicam) 15 Mg Tablet, 15 MG PO DAILY PRN for PAIN for 10 Days, #10 TAB Prov:DOMINGA VANESSA DO 06/12/24 Hydrocodone/Acetaminophen (Hydrocodon-Acetaminophen 5-325) 5 Mg-325 Mg Tablet, 1 TAB PO TIDP PRN for pain for 10 Days, #20 TAB 0 Refills Prov:DOMINGA VANESSA DO 06/12/24 Prednisone (Prednisone) 20 Mg Tablet, 1 TAB PO AD for 6 Days, #14 TAB 0 Refills TAKE 1 TAB BY MOUTH THREE TIMES PER DAY X3 DAYS, THEN TAKE 1 TAB BY MOUTH TWICE A DAY X2 DAYS, THEN TAKE 1 TAB BY MOUTH ONCE A DAY X1 DAY. Prov:ELANA PATTERSON MD 05/26/24 Hydrocodone/Acetaminophen (Hydrocodon-Acetaminophen 5-325) 5 Mg-325 Mg Tablet, 1 EACH PO Q6H for pain, #16 TAB 0 Refills Prov:ELANA PATTERSON MD 05/26/24 Cyclobenzaprine HCl (Cyclobenzaprine HCl) 10 Mg Tablet, 1 TAB PO TID for muscle spasms for 10 Days, #30 TAB 0 Refills Prov:ELANA PATTERSON MD 05/26/24 Meloxicam (Meloxicam) 7.5 Mg Tablet, 1 TAB PO BID for 30 Days, #60 TAB 0 Refills Prov:ELANA PATTERSON MD 05/26/24 Reported Medications Omeprazole (Omeprazole) 40 Mg Capsule.dr, 40 MG PO AM, CAP 06/21/16 Past Medical History Past Medical History: GERD, Other Additional Past Medical Hx: BACK PAIN, SCIATIC Surgical History: None Surgical History Other: HIATAL HERNIA Family History: Negative Social History: Negative RN Note Reviewed/Agreed w/PFSH: Yes Review of System Dictation Constitutional: Negative for fever,chills, and weight loss Eyes: Negative for injury, pain,redness, and discharge ENT: Negative for injury,pain or swelling Cardiovascular: Negative for chest pain, palpitations, and edema Respiratory: Negative for shortness of breath, cough, and wheezing, Abdomen/GI: Negative for abdominal pain, nausea, vomiting, diarrhea, and constipation Back: Negative for injury and pain--as described in the history of present i llness : Negative for injury, bleeding and discharge MS/Extremity: Negative for injury and deformity Skin: Negative for rash, and discoloration Neuro: Negative for headache, weakness, numbness, tingling, and seizure Psych: Negative for suicide ideation, homicidal ideation, and hallucinations Initial Vital Sign VS Vital Signs Date Time Temp Pulse Resp B/P (MAP) Pulse Ox O2 Delivery O2 Flow Rate FiO2 06/26/24 00:11 98.8 111 20 118/97 100 Room Air 06/26/24 00:19 0 21 Physical Exam Dictation General: awake, alert, NAD Head/Face: Normocephalic, atraumatic Eyes: PERRL, EOMI, vision at baseline ENT: oral cavity clear, TMs clear, no signs of infection Neck: Trachea midline, supple, no nuchal rigidity Cardiovascular: RRR, normal S1/S2, No MRGs, no JVD Respiratory: CTAB, no respiratory distress, No rales or wheezes Abdomen: Soft, non-tender, non-distended, normal bowel sounds, no guarding or rebound. Skin: Warm, dry, normal turgor, no rash MS/Extremity: Pulses equal, no cyanosis, neurovascular intact, FROM Neuro: COAx4, GCS 15, strength 5/5, CN 2-12 intact, normal cerebellar exam, normal gait, Psych: Normal behavior, mood, and affect normal Extremities-trace edema without any palpable cords, Homans sign is negative Results (Laboratory/Radiology) Labs Reviewed?: Yes CT Scan Comment: PATIENT: CARLTON PICKETT MR#: [id number] : 1965 SEX: M AGE: 58 LOCATION: [facility] ORDER [id number] STATUS: REG CLI REPORT#: [id number] SERVICE REASON: SCIATICA L SIDE ORDERING PHYSICIAN: MARGARET EDWARDS PROCEDURE: L SPN WO - MR SPINAL CANAL, LUMBAR WO CON MR SPINAL CANAL, LUMBAR WO CON HISTORY: Left-sided sciatica COMPARISON: None TECHNIQUE: MRI of the lumbar spine was performed utilizing multiple pulse sequences in axial , coronal and sagittal plane. Patient was not given contrast through intravenous route. FINDINGS: No abnormal signal intensity is seen of the visualized bony structure. No loss of vertebral height is seen. There is straightening of normal lumbar curvature which may be related to muscle spasm or positioning. Degenerative disc signals are present at all lumbar spine levels. Visualized distal conus is unremarkable. At the L1-L2 level, there is left lateral disc herniation/extrusion causing anterior thecal sac compression without associated neural foraminal stenosis. The thecal sac measures approximately 7 mm in its anterior posterior dimension. At the L4-5 level, there is spondylotic disc with annular disc bulge and bilateral ligamentum flavum hypertrophy causing anterior thecal sac compression with bilateral lateral recess stenosis and bilateral neural foraminal stenosis. The thecal sac measures approximately 6.8 mm in its anterior posterior dimension. At the L5-S1 level, there is spondylotic disc with lateral disc herniation/extrusion annular disc bulge and bilateral ligamentum flavum hypertrophy causing anterior thecal sac compression with bilateral lateral recess stenosis and bilateral neural foraminal stenosis. There may be left nerve root encroachment. The thecal sac measures approximately 6.8 mm in its anterior posterior dimension. IMPRESSION: 1. DJD with lumbar spine spondylosis as described above. There is left lateral disc herniation/extrusion at L5-S1 level causing left neural root encroachment. There is also left lateral disc herniation/extrusion at L1-2 level. DICTATED BY: LORA LOTT MD DATE: 06/18/24 0853 ED Course ED Course Orders Procedure Category Date Status Time Ketorolac PHA 06/26/24 Complete Tromethamine 30mg/Ml 01:00 Cyclobenzaprine Hcl PHA 06/26/24 Complete (Cyclobenzaprine Hcl 01:00 Hydromorphone 1 Mg PHA 06/26/24 In Process Inj (Dilaudid 1mg Inj 01:30 Methylprednisolone PHA 06/26/24 In Process Succ 125mg (Solu-Medr 01:30 Lidocaine (Lidocaine PHA 06/26/24 In Process Patch 4%) 01:30 Current Medications Medications (Trade) Dose Ordered Sig/Elidia Route PRN Reason Start Time Stop Time Status Last Admin Dose Admin Cyclobenzaprine HCl (Cyclobenzaprine HCl) 5 mg ONCE ONCE PO 06/26/24 01:00 06/26/24 01:01 DC 06/26/24 00:49 Hydromorphone HCl (DiLAUDid 1MG INJ) 1 mg ONCE ONCE IVP 06/26/24 01:30 06/26/24 01:31 Ketorolac Tromethamine (toRADol) 30 mg ONCE ONCE IM 06/26/24 01:00 06/26/24 01:01 DC 06/26/24 00:48 Lidocaine (Lidocaine Patch 4%) 1 each ONCE ONCE TP 06/26/24 01:30 06/26/24 01:31 Methylprednisolone Sodium Succinate (Solu-medROL 125MG) 60 mg ONCE ONCE IVP 06/26/24 01:30 06/26/24 01:31 Vital Signs Date Time Temp Pulse Resp B/P (MAP) Pulse Ox O2 Delivery O2 Flow Rate FiO2 06/26/24 00:19 112 22 151/113 98 Room Air* 0 21 06/26/24 00:11 98.8 111 20 118/97 100 Room Air We will administer medications according to the patient's complaint. Once the results are available, will review and personally interpreted the labs to rule out any acute life-threatening emergency the trach require immediate intervention and treatment. I will then re-evaluate the patient after treatment and diagnostic exams have return to determine whether the patient requires any further testing, can safely be discharged home or need further admission to hospital for additional treatment and evaluation. I have reviewed the RI of the lumbar spine done on 06/18/2024 which showed herniated discs at L1-L2 level and L5-S1 level with some encroachment in the surrounding area. Please see the full report for details Medical Decision Making MDM MDM: Differential diagnosis: Rationale: Tests considered and ordered secondary to shared decision making include: Previous outside records reviewed: Old ER visits. Risk of complication and/or morbidity or mortality of patient management: None Medications-Per medication reconciliation Need for hospitalization: Patient does not meet criteria for hospitalization. Need for emergency major/minor surgery: No There are no social concerns with this patient. Prescription drug management Prescriptions will include symptomatic care Patient's prior external medical records from other ER visits were reviewed by me as indicated. Prior testing and results from previous visits were reviewed. Prior tests were taken into account with medical decision making and resource utilization, independent historian/historians were used to obtain complete medical history. I independently interpreted the test that were performed, results were reviewed by me and considered findings on radiology if ordered. Medical management and examination interpretation discussions were had by me with other qualified healthcare professionals as indicated for the patient's care. Problem List Problem List: (1) Low back pain with sciatica (2) Herniated intervertebral disc of lumbar spine (3) Lumbar back pain with radiculopathy affecting left lower extremity DX & DISP Disposition: Discharge Departure Impression: Primary Impression: Low back pain with sciatica Additional Impressions: Lumbar back pain with radiculopathy affecting left lower extremity, Herniated intervertebral disc of lumbar spine Condition: Stable Scripts Prednisone (Prednisone) 20 Mg Tablet 1 TAB PO AD for 6 Days, #14 TAB 0 Refills TAKE 1 TAB BY MOUTH THREE TIMES PER DAY X3 DAYS, THEN TAKE 1 TAB BY MOUTH TWICE A DAY X2 DAYS, THEN TAKE 1 TAB BY MOUTH ONCE A DAY X1 DAY. Prov: ELANA PATTERSON MD 06/26/24 Oxycodone HCl/Acetaminophen (Percocet 5-325 mg Tablet) 5 Mg-325 Mg Tablet 1 TAB PO QIDP PRN for severe back pain for 5 Days, #20 TAB 0 Refills Prov: ELANA PATTERSON MD 06/26/24 Cyclobenzaprine HCl (Cyclobenzaprine HCl) 5 Mg Tablet 1 TAB PO TIDP PRN for muscle spasms for 10 Days, #30 TAB 0 Refills Prov: ELANA PATTERSON MD 06/26/24 Meloxicam (Meloxicam) 7.5 Mg Tablet 1 TAB PO DAILY for 30 Days, #30 TAB 0 Refills Prov: ELANA PATTERSON MD 06/26/24 Additional Instructions: Patient and the caregiver have been informed of all the diagnostic tests and the imaging conducted during the today's visit to the emergency room and has verbalized understanding of the results I have personally reviewed and interpreted all diagnostic exams performed here in the ER today as well as the vital signs documented by the nursing staff. The patient is now being discharged to home and should follow up with the primary care physician or the specialist as directed by the ER staff. Follow-up with primary care provider in 1 to 2 days. Take medications as directed here in the emergency room. Okay to continue home medications unless otherwise discussed during your visit in the emergency room today. Return to your nearest emergency room if symptoms worsen or if there is no improvement. Call 911 if you need immediate assistance. Take Tylenol or Motrin [id number] as needed and if no contraindications are present. Increase oral hydration. A wound culture or urine culture was ordered here in the emergency room department please follow-up with primary care provider and advise them to get repeat ports from our facility. If you had any Freddie wrap/splints that were applied here, please do not remove them until you see your primary care or specialty. Gave a referral to [facility] clinic for pain management [phone], 10/11/[address] [address] Referrals: MARGARET EDWARDS (PCP) ELANA PATTERSON MD Jun 26, 2024 00:36
[2024-06-26] MEDS: ketOROlac 30MG VIAL (30MG/ML) IM ONE (00:48)
[2024-06-26] MEDS: CYCLOBENZAPRINE HCL 10 MG TABLET PO ONE (00:49)
[2024-06-26] MEDS: LIDOCAINE 4% ADH..PATCH TP ONE (01:19)
[2024-06-26] MEDS ORDERED: CYCL5TAB3 PO (01:25)
[2024-06-26] MEDS ORDERED: MELO-106 PO (01:25)
[2024-06-26] MEDS ORDERED: OXYC-38 PO (01:25)
[2024-06-26] MEDS: hydroMORPHone 1 MG INJ IVP ONE (01:25)
[2024-06-26] MEDS: Solu-medROL 125MG VIAL IVP ONE (01:31)
[2024-06-26 03:25] VITALS: BP 117/79; PULSE 76; RESP 17; O2SAT 91
== END 2024-06-26 03:55 | disposition home or self-care (01) ==
LOC: EDH 00:10
DX: M51.17 Intervertebral disc disorders with radiculopathy, lumbosacral region (principal); M51.26 Other intervertebral disc displacement, lumbar region; K21.9 Gastro-esophageal reflux disease without esophagitis; Z79.1 Long term (current) use of non-steroidal anti-inflammatories (NSAID); Z79.52 Long term (current) use of systemic steroids
CPT/HCPCS: 99284; 96374; 96375; 96372; J1885; J2919; J1171

== ENCOUNTER 2025-03-29 18:09 | Emergency (ER) | payer OTHER ==
[~2025-03-29] VITALS: Ht 175.3 cm; Wt 75.7 kg
[~2025-03-29 18:09] MED LIST changes: +CYCL5TAB3 PO; +OXYC-38 PO
[2025-03-29] MEDS ORDERED: TOBR5DRO67 OP (19:02)
--- NOTE | 2025-03-29 19:10 | ERN ---
ED Note History of Present Illness Stated Complaint: EYE PROBLEM Chief Complaint: Eye Problems Time Seen by MD: 18:12 Time Seen by Midlevel: 18:12 Dictation: The patient is a 59-year-old male who presents to the emergency department with complains of right eye pain after an small rock hit his right eye while cutting the grass on Friday. Patient denies any visual deficits. Allergies: Coded Allergies: No Known Drug Allergies (Unverified Allergy, Unknown, 06/21/16) Home Meds Active Scripts Tobramycin/Dexamethasone (Tobradex St Eye Drops) 0.3 %-0.05 % Drops.susp, 1 DROP OP QID, #5 ML 0 Refills Prov:REE OCHOA 03/29/25 Prednisone (Prednisone) 20 Mg Tablet, 1 TAB PO AD for 6 Days, #14 TAB 0 Refills TAKE 1 TAB BY MOUTH THREE TIMES PER DAY X3 DAYS, THEN TAKE 1 TAB BY MOUTH TWICE A DAY X2 DAYS, THEN TAKE 1 TAB BY MOUTH ONCE A DAY X1 DAY. Prov:ELANA PATTERSON MD 06/26/24 Oxycodone HCl/Acetaminophen (Percocet 5-325 mg Tablet) 5 Mg-325 Mg Tablet, 1 TAB PO QIDP PRN for severe back pain for 5 Days, #20 TAB 0 Refills Prov:ELANA PATTERSON MD 06/26/24 Cyclobenzaprine HCl (Cyclobenzaprine HCl) 5 Mg Tablet, 1 TAB PO TIDP PRN for muscle spasms for 10 Days, #30 TAB 0 Refills Prov:ELANA PATTERSON MD 06/26/24 Meloxicam (Meloxicam) 7.5 Mg Tablet, 1 TAB PO DAILY for 30 Days, #30 TAB 0 Refills Prov:ELANA PATTERSON MD 06/26/24 Prednisone (Prednisone) 20 Mg Tablet, 1 TAB PO BID for 5 Days, #10 TAB 0 Refills Prov:DOMINGA VANESSA DO 06/12/24 Orphenadrine Citrate (Orphenadrine Citrate) 100 Mg Tablet.er, 1 TAB PO [id number] PRN for pain for 10 Days, #20 TAB 0 Refills Prov:DOMINGA VANESSA DO 06/12/24 Meloxicam (Meloxicam) 15 Mg Tablet, 15 MG PO DAILY PRN for PAIN for 10 Days, #10 TAB Prov:DOMINGA VANESSA DO 06/12/24 Hydrocodone/Acetaminophen (Hydrocodon-Acetaminophen 5-325) 5 Mg-325 Mg Tablet, 1 TAB PO TIDP PRN for pain for 10 Days, #20 TAB 0 Refills Prov:DOMINGA VANESSA Brennan DO 06/12/24 Prednisone (Prednisone) 20 Mg Tablet, 1 TAB PO AD for 6 Days, #14 TAB 0 Refills TAKE 1 TAB BY MOUTH THREE TIMES PER DAY X3 DAYS, THEN TAKE 1 TAB BY MOUTH TWICE A DAY X2 DAYS, THEN TAKE 1 TAB BY MOUTH ONCE A DAY X1 DAY. Prov:ELANA PATTERSON MD 05/26/24 Hydrocodone/Acetaminophen (Hydrocodon-Acetaminophen 5-325) 5 Mg-325 Mg Tablet, 1 EACH PO Q6H for pain, #16 TAB 0 Refills Prov:ELANA PATTERSON MD 05/26/24 Cyclobenzaprine HCl (Cyclobenzaprine HCl) 10 Mg Tablet, 1 TAB PO TID for muscle spasms for 10 Days, #30 TAB 0 Refills Prov:ELANA PATTERSON MD 05/26/24 Meloxicam (Meloxicam) 7.5 Mg Tablet, 1 TAB PO BID for 30 Days, #60 TAB 0 Refills Prov:ELANA PATTERSON MD 05/26/24 Reported Medications Omeprazole (Omeprazole) 40 Mg Capsule.dr, 40 MG PO AM, CAP 06/21/16 Past Medical History Past Medical History: No Pertinent History Additional Past Medical Hx: BACK PAIN, SCIATIC Surgical History: Other Surgical History Other: ABDOMINAL SX Family History: Negative Social History: Negative RN Note Reviewed/Agreed w/PFSH: Yes Review of System Dictation Constitutional: Negative for fever,chills, and weight loss Eyes: Negative for discharge positive for injury, pain,redness, right eye ENT: Negative for injury,pain or swelling Cardiovascular: Negative for chest pain, palpitations, and edema Respiratory: Negative for shortness of breath, cough, and wheezing, Abdomen/GI: Negative for abdominal pain, nausea, vomiting, diarrhea, and constipation Back: Negative for injury and pain : Negative for injury, bleeding and discharge MS/Extremity: Negative for injury and deformity Skin: Negative for rash, and discoloration Neuro: Negative for headache, weakness, numbness, tingling, and seizure Psych: Negative for suicide ideation, homicidal ideation, and hallucinations Initial Vital Sign VS Vital Signs Date Time Temp Pulse Resp B/P (MAP) Pulse Ox O2 Delivery O2 Flow Rate FiO2 03/29/25 18:09 99.0 105 18 115/80 98 Room Air 0 Physical Exam Dictation Vital Signs reviewed General Appearance: Alert, oriented x 3, no acute distress, well developed, nourished. Head and Face: non-traumatic. Eyes: PERRL, pink conjunctivas, eyelid no trauma, anterior chamber with arcus senilis. corneal abrasion to the right eye at around 5 o clock. No foreign body identified Ears: Pinnas intact and no signs of trauma or erythema ear canals clear and no discharge TM no erythema Nose: No discharge, no bleeding. Oropharynx: Mouth normal, tongue pink. pharynx clear,no erythema, tonsils no exudates, no abscesses noted, mucous membrane moist Neck: Supple, non-tender, no thyromegaly, no masses, no JVD, no bruits Breast:Deferred Chest:No tenderness, no crepitus, no paradoxical movement, no retractions Lungs:Clear, well-ventilated, symmetric, no rales, no wheezing, no rhonchi, no stridor, good breath sounds bilaterally Heart: Regular rate, regular rhythm, no murmur, no gallops Vascular: no peripheral edema, Abdomen: Soft, positive bowel sounds, nondistended, no guarding, nontender, no rebound, no masses no hepatomegaly, no splenomegaly, no Kaminski's sign, no hernias. Rectal: Deferred Genital: Deferred Neurological: Normal speech, motor function intact, sensory function intact Musculoskeletal: Neck nontender, full range of motion, back nontender, full range of motion, Extremities: nontender, full range of motion Skin: Color pink, dry, no turgor, no rash, no lacerations, no abrasions, no contusions. Lymphatic: Deferred Results (Laboratory/Radiology) Labs Reviewed?: Yes ED Course ED Course Orders Procedure Category Date Status Time Tetracaine Hcl PHA 03/29/25 In Process (Pontocaine 0.5% 19:00 Fluorescein Sodium PHA 03/29/25 In Process (Uvons-H-Dajhe At) 19:00 Current Medications Medications (Trade) Dose Ordered Sig/Elidia Route PRN Reason Start Time Stop Time Status Last Admin Dose Admin Fluorescein Sodium (Jvgxm-O-Xljlh At) 1 strip ONCE OP 03/29/25 19:00 03/30/25 06:00 Tetracaine HCl (Pontocaine 0.5% Ophth Soln) 1 OR 2 DROPS ONCE OP 03/29/25 19:00 03/30/25 06:00 Vital Signs Date Time Temp Pulse Resp B/P (MAP) Pulse Ox O2 Delivery O2 Flow Rate FiO2 03/29/25 18:09 99.0 105 18 115/80 98 Room Air 0 Medical Decision Making MDM The patient is a 59-year-old male who presents to the emergency department with complains of right eye pain after an small rock hit his right eye while cutting the grass on Friday. Patient denies any visual deficits. Patient denies any use of contact lenses Eye exam revealed a corneal abrasion to the right eye at around 5 o clock. No foreign body identified. Patient will be started on antibiotics and instructed to follow up with the Ophthalmology. Patient otherwise in no acute distress, ocular motor intact, Differential diagnosis: Corneal abrasion, contusion, conjunctivitis Need for hospitalization: Patient does not meet criteria for hospitalization. There are no social concerns with this patient. DX & DISP Disposition: Discharge Departure Impression: Primary Impression: Corneal abrasion, right Condition: Stable Scripts Tobramycin/Dexamethasone (Tobradex St Eye Drops) 0.3 %-0.05 % Drops.susp 1 DROP OP QID, #5 ML 0 Refills Prov: REE OCHOA A PAC 03/29/25 Additional Instructions: Please take your medications as prescribed. You need to follow up with the Ophthalmology. [facility] [address], [facility] [address] If anything Worsens please return to ER. FOLLOW-UP WITH PRIMARY CARE PROVIDER IN 1 TO 2 DAYS. TAKE MEDICATIONS DIRECTED HERE IN THE EMERGENCY ROOM. OKAY TO CONTINUE HOME MEDICATIONS UNLESS OTHERWISE DISCUSSED DURING YOUR VISIT IN THE EMERGENCY ROOM TODAY. RETURN TO YOUR NEAREST EMERGENCY ROOM IF SYMPTOMS WORSEN OR IF THERE IS NO IMPROVEMENT. CALL 911 IF YOU NEED IMMEDIATE ASSISTANCE. TAKE TYLENOL [id number] NEEDED AND IF NO CONTRAINDICATIONS ARE PRESENT. INCREASE ORAL HYDRATION. A WOUND CULTURE OR URINE CULTURE WAS ORDERED HERE IN THE EMERGENCY ROOM DEPARTMENT PLEASE FOLLOW-UP WITH PRIMARY CARE PROVIDER AND ADVISE THEM TO GET REPEAT PORTS FROM OUR FACILITY. IF YOU HAD ANY CANDACE WRAP/SPLINTS THAT WERE APPLIED HERE, PLEASE DO NOT REMOVE THEM UNTIL YOU SEE YOUR PRIMARY CARE OR SPECIALTY. Referrals: DONATO MORALES MD (PCP) Time of Disposition: 19:22 I have reviewed the case, and I agree with, Diagnosis and Plan TIM DUEÑAS SENIOR RISK ANALYST Mar 29, 2025 19:10
[2025-03-29] MEDS: FLUORESCEIN SODIUM 1 STRIP STRIP OP SCH (19:45)
[2025-03-29] MEDS: TETRACAINE HCL 0.5% 4 ML OPHTH SOLN OP SCH (19:45)
[2025-03-29 19:49] VITALS: BP 112/76; PULSE 90; RESP 16; TEMP 99; O2SAT 98
== END 2025-03-29 19:55 | disposition home or self-care (01) ==
LOC: EDH 18:09
DX: S05.01XA Injury of conjunctiva and corneal abrasion without foreign body, right eye, initial encounter (principal); Z79.1 Long term (current) use of non-steroidal anti-inflammatories (NSAID); Z79.52 Long term (current) use of systemic steroids; W22.8XXA Striking against or struck by other objects, initial encounter; Y93.89 Activity, other specified; Y92.89 Other specified places as the place of occurrence of the external cause; Y99.8 Other external cause status
CPT/HCPCS: 99283